=== PATIENT | female | born 1975 | race Caucasian/White ===

== ENCOUNTER 2017-01-17 23:39 | Emergency (ER) | payer MEDICARE ==
--- NOTE | ~2017-01-17 | CT2 ---
[facility] A Service [facility] RADIOLOGY TEXT RESULTS PATIENT: KRISTINA MONDRAGON LOCATION: [facility] : [birth year] UNIT #: [id number] AGE: [address]: Meghan Nails APRN SEX: F ORDER DR: [id number] [facility]. [place], [place] [address] [id number] E MR#: [id number] #: [id number] NAME: KRISTINA MONDRAGON. : 1975 SEX: F STUDY DATE/TIME: 01/18/2017 3:51 UNIT: [facility] ROOM: STUDY DESCRIPTION: CT Abd and Pelv W Cont Attending Physician: Meghan Nails A.P.R.N. Ordering Physician: Meghan Nails A.P.R.N. Primary Care Physician: Katelynn Machado M.D. MEDICAL IMAGING REPORT This report is preliminary unless electronic signature is present EXAM CT abdomen and pelvis with contrast. INDICATION Right-sided abdominal pain tonight. PROCEDURE Contrast-enhanced CT of the abdomen and pelvis. This CT exam was performed with one or more of the following radiation dose reduction techniques: automatic exposure control, adjustment of mA and/or kV according to patient size, and iterative reconstruction. COMPARISON None FINDINGS ABDOMEN WITH CONTRAST: Included lung bases are clear. Hepatomegaly with significant steatosis. The liver measures 24.3 cm. The spleen, kidneys, adrenal glands, pancreas unremarkable. Previous cholecystectomy. The bowel loops are nondilated. Appendix is normal. Moderate colonic stool. PELVIS WITH CONTRAST: No pelvic mass or fluid. No aggressive appearing bone lesion. IMPRESSION 1. No acute findings in the abdomen or pelvis. 2. Hepatomegaly with significant steatosis. [facility] A Service [facility] RADIOLOGY TEXT RESULTS PATIENT: KRISTINA MONDRAGON LOCATION: [facility] : 71 UNIT #: [id number] AGE: [address]: Meghan Nails APRN SEX: F ORDER DR: Dictated by... Damon Fernandes M.D. THIS IS AN ELECTRONICALLY VERIFIED REPORT Damon Fernandes M.D. at 01/21/2017 7:21 AM MARIA DEL CARMEN/chante TD: 01/18/2017 09:42 JOB #: [id number] MEDICAL IMAGING REPORT Page 1 of 1 COPY
[~2017-01-17 23:39] MED LIST: AMRIX15 MG PO; BACTRIM DS TABL1 TAB PO; LISINOPRIL PO; LISINOPRIL5 MG PO; MOTRIN600 M1 PO; NORCO 5/325 TAB1 TAB PO; OMEPRAZOLE40 MG PO; UNIVASC7.5 MG PO; VITAMIN D2 PO; ZOLOFT50 MG PO
[2017-01-18 02:14] LABS: URINE SOURCE CLEAN CATCH
[2017-01-18 02:28] LABS: BASOPHIL# 0.1 X10e3 (0-0.3); BASOPHIL% 0.7 % (0-2.5); EOSINOPHIL# 0.1 X10e3 (0-0.7); EOSINOPHIL% 0.9 % (0.0-7.0); HEMATOCRIT 37.9 % (35.0-45.0); HEMOGLOBIN 12.4 gm/dL (12.0-16.0); LYMPHOCYTE# 2.7 X10e3 (1.0-3.5); MEAN CELL VOLUME 76.7 FL (83-96); MEAN CORPUSCULAR HGB CONC 32.6 g/dL (30-36); MEAN PLATELET VOLUME 7.1 FL (6.5-11.5); MONOCYTE# 0.7 X10e3 (0-1.0); MONOCYTE% 6.6 % (3.0-12.0); NEUTROPHIL# 6.5 X10e3 (1.5-7.1); NEUTROPHIL% 64.8 % (40-75); PLATELET COUNT 274 X10e3 (140-420); RED BLOOD COUNT 4.95 X10e (3.90-5.30); RED CELL DISTRIBUTION WIDTH 14.2 % (11.0-15.5); WHITE BLOOD COUNT 10.1 X10e3 (4.0-10.5)
[2017-01-18 02:30] LABS: URINE APPEARANCE CLEAR; URINE BILIRUBIN NEG (NEG); URINE BLOOD NEG (NEG); URINE COLOR YELLOW; URINE GLUCOSE NEG (NEG); URINE KETONE NEG (NEG); URINE LEUKOCYTE ESTERASE NEG (NEG); URINE NITRATE NEG (NEG); URINE PROTEIN NEG (NEG); URINE SPECIFIC GRAVITY 1.029 (1.003-1.035)
[2017-01-18 02:30] LABS: DIFF IND NO
[2017-01-18 02:33] LABS: CULTURE INDICATED? NO
[2017-01-18 03:00] LABS: ALBUMIN SERUM 4.4 g/dL (3.5-5.0); BILIRUBIN,TOTAL 0.7 mg/dL (0.2-2.0); BUN/CREATININE RATIO 11.11; CREATININE SERUM 0.9 mg/dL (0.6-1.4); GLOM FILT RATE Estimated 78.4 mL/min (>60); POTASSIUM 3.6 mmol/L (3.5-5.1); PROTEIN TOTAL SERUM 7.2 g/dL (6.0-8.3)
[2017-01-21 08:19] LABS: CHLAMYDIA TRACH Not Detected (Not Detected); N GONOR Not Detected (Not Detected)
[2017-02-13] MEDS ORDERED: SERTRALINE HCL100 M1 PO (14:54)
[2017-02-13] MEDS ORDERED: LISINOPRIL5 MG PO (14:54)
[2017-02-13] MEDS ORDERED: DOCUSATE SODIU100 MG PO (14:55)
== END 2017-01-18 05:35 | disposition home or self-care (01) ==
LOC: CED 23:39
PROVIDERS: Nurse Practitioner
DX: R10.9 Unspecified abdominal pain (principal); I10 Essential (primary) hypertension; Z88.0 Allergy status to penicillin
CPT/HCPCS: 36415; 74177; 80053; 81003; 82150; 83690; 84703; 85025; 87491; 87591; 87808; 87905; 88305; 96360; 99284; Q9967

== ENCOUNTER → 2017-02-25 | Day surgery (SDC) | payer MEDICARE ==
[~2017-02-25] MED LIST changes: +DOCUSATE SODIU100 MG PO; +SERTRALINE HCL100 M1 PO
--- NOTE | ~2017-02-25 | OR ---
Unit #: [id number] #: [id number] Patient: KRISTINA MONDRAGON [id number] [address] [place], [place] [address] [id number] O MR#: [id number] NAME: KRISTINA MONDRAGON. ROOM: Date of Procedure: 02/25/2017 Admission Date: 02/25/2017 Surgeon: Slim Loo M.D. : 1975 Attending Physician: Slim Loo M.D. Referring Physician: Slim Loo M.D. Primary Care Physician: Katelynn Machado M.D. OPERATIVE REPORT PREOPERATIVE DIAGNOSES 1. Reflux symptoms resistant to medications. 2. 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 POSTOPERATIVE DIAGNOSES 1. Reflux symptoms resistant to medications. 2. 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 PROCEDURES PERFORMED 1. Esophagogastroduodenoscopy. 2. Biopsy of antrum for Helicobacter pylori testing. 3. Colonoscopy to terminal ileum. 4. Biopsy of abnormal mucosa at 20 cm. ANESTHESIA Monitored anesthesia care. FINDINGS The patient was found on upper endoscopy to have mild gastritis, mild distal esophagitis, and small hiatal hernia. On colonoscopy, the patient was found to have a small amount of abnormal mucosa possibly the site where the large colonic lipoma extruded that was biopsied. SPECIMENS Sent to pathology. COMPLICATIONS None apparent. CONDITION The patient tolerated the procedure well. INDICATIONS FOR PROCEDURE The patient is a 41-year-old white female, who several weeks ago developed right-sided abdominal pain. She had a bowel movement looked in the toilet and saw a large piece of tissue present. She retrieved this and came to the emergency room for evaluation. She had some rectal bleeding at this time. She had a CT scan at that time that was normal. The tissue was sent to pathology and the pathology report returned as a benign lipoma with ischemic overlying colonic mucosa. It was felt that she had possibly had a lipoma that had increased in size and had eroded through the mucosal lining of the colon and passed per rectum. She presents at this time for Unit #: [id number] #: [id number] Patient: KRISTINA MONDRAGON evaluation by upper and lower endoscopy. DESCRIPTION OF PROCEDURE After obtaining informed consent, the patient was brought to the endoscopy suite and after adequate monitored anesthesia care, had the endoscope placed through the mouth into the upper esophagus under direct vision. It was advanced to the second portion of the duodenum without difficulty with the lumen always in view. The duodenum was normal as was the duodenal bulb. The pylorus opened normally. There was some mild distal gastritis present and a biopsy was obtained for Helicobacter pylori testing. On retroflexion back to the GE junction, there was some mild to moderate gastritis in the proximal stomach and a small hiatal hernia was seen. No other abnormalities were found in the proximal third, middle third, or incisura. On pulling back above the GE junction, there was some mild distal esophagitis. There was no stenosis, stricture, or neoplasm seen. The remaining portion of the esophagus was within normal limits. Laryngeal structures were grossly normal as viewed from above. At this point in time, the colonoscope was placed through the anus and slowly advanced to the level of the cecum without difficulty with the lumen always in view. The cecum was within normal limits as was the ileocecal valve. We were able to pass through the ileocecal valve into the terminal ileum. The terminal ileum was normal as well. The ascending colon was normal as was the hepatic flexure, transverse colon, splenic flexure, and descending colon. The sigmoid colon was normal until at 20 cm, there was a small 2 to 3 cm area of raised mucosa. It did not appear to be a neoplasm. There was no ulceration seen. It was felt this could possibly have been the area where the lipoma had extruded through the lining of the colon. A biopsy was obtained. There was good hemostasis. The remaining portion of the rectosigmoid and rectum were all within normal limits. On retroflexing back to the anorectal junction, there was no obvious abnormality seen. The scope was removed without difficulty. The patient tolerated the procedure well and went from the endoscopy suite to the recovery area in stable condition. RECOMMENDATIONS Gastroesophageal reflux sheet given. High-fiber diet, lots of liquids, tucks or wipes p.r.n. Call Saturday for pathology report and to discuss findings. Dictated by... Elke Fontanez/kelechi TD: 02/25/2017 16:22 JOB #: [id number] CC: [facility] Unit #: [id number] #: [id number] Patient: KRISTINA MONDRAGON OPERATIVE REPORT Page 1 of 1 X Slim Loo MD PROCEDURE OPERATIVE NOTE
== END | disposition home or self-care (01) ==
LOC: COPS 10:28
DX: K52.9 Noninfective gastroenteritis and colitis, unspecified (principal); K63.89 Other specified diseases of intestine; K29.70 Gastritis, unspecified, without bleeding; K21.0 Gastro-esophageal reflux disease with esophagitis; K44.9 Diaphragmatic hernia without obstruction or gangrene; I11.0 Hypertensive heart disease with heart failure; I50.9 Heart failure, unspecified; J30.9 Allergic rhinitis, unspecified; F31.9 Bipolar disorder, unspecified; F32.9 Major depressive disorder, single episode, unspecified; F41.1 Generalized anxiety disorder; Z87.440 Personal history of urinary (tract) infections; Z88.0 Allergy status to penicillin; Z98.890 Other specified postprocedural states
CPT/HCPCS: 84703; 87077; 88305

== ENCOUNTER 2017-03-12 17:16 | Emergency (ER) | payer OTHER, MEDICARE ==
[~2017-03-12] VITALS: Ht 172.7 cm; Wt 99.8 kg
--- NOTE | ~2017-03-12 | CT2 ---
[facility] A Service [facility] RADIOLOGY TEXT RESULTS PATIENT: KRISTINA MONDRAGON LOCATION: [facility] : 71 UNIT #: [id number] AGE: [address]: Marcial Levine MD SEX: F ORDER DR: [id number] [facility] [address] [place], [place] [address] [id number] E MR#: [id number] #: [id number] NAME: KRISTINA MONDRAGON : 1975 SEX: F STUDY DATE/TIME: 03/12/2017 22:00 UNIT: [facility] ROOM: STUDY DESCRIPTION: CT Abd and Pelv W Cont Attending Physician: Damon Levine M.D. Ordering Physician: Ed Doctor [id number] [facility] Primary Care Physician: Katelynn Machado M.D. MEDICAL IMAGING REPORT This report is preliminary unless electronic signature is present EXAM CT scan of the abdomen and pelvis with contrast 03/12/2017 HISTORY Right flank pain for [address] was performed through the abdomen and pelvis following oral and intravenous contrast administration. This CT examination was performed with one or more of the following radiation dose reduction techniques: automatic exposure control, adjustment of mA and/or kV according to patient size, and iterative reconstruction. FINDINGS ABDOMEN: There is diffuse fatty infiltration of the liver. The spleen, pancreas, gallbladder and biliary tree, adrenal glands and kidneys are normal. PELVIS: The gut, mesenteric and alexander structures are normal. The appendix is normal. There is no free fluid in the abdomen or pelvis. The lung bases are normal. IMPRESSION 1. Normal appendix. 2. Fatty infiltration of the liver. Dictated by... Jason Gomez M.D. THIS IS AN ELECTRONICALLY VERIFIED REPORT Jason Gomez M.D. at 03/13/2017 2:20 PM [facility] A Service [facility] RADIOLOGY TEXT RESULTS PATIENT: KRISTINA MONDRAGON LOCATION: [facility] : 71 UNIT #: [id number] AGE: [address]: Marcial Levine MD SEX: F ORDER DR: GINA/heather TD: 03/13/2017 09:00 JOB #: [id number] MEDICAL IMAGING REPORT Page 1 of 1 COPY
[2017-03-12 18:56] LABS: BASOPHIL% 0.6 % (0-2.5); EOSINOPHIL# 0.1 X10e3 (0-0.7); EOSINOPHIL% 1.3 % (0.0-7.0); HEMATOCRIT 37.3 % (35.0-45.0); HEMOGLOBIN 12.6 gm/dL (12.0-16.0); LYMPHOCYTE% 27.5 % (17.0-45.0); MEAN CORPUSCULAR HEMOGLOBIN 25.7 PG (28-34); MEAN CORPUSCULAR HGB CONC 33.8 g/dL (30-36); MEAN PLATELET VOLUME 6.9 FL (6.5-11.5); MONOCYTE# 0.5 X10e3 (0-1.0); MONOCYTE% 6.7 % (3.0-12.0); NEUTROPHIL# 4.7 X10e3 (1.5-7.1); NEUTROPHIL% 63.9 % (40-75); PLATELET COUNT 247 X10e3 (140-420); RED BLOOD COUNT 4.91 X10e (3.90-5.30); RED CELL DISTRIBUTION WIDTH 14.6 % (11.0-15.5); WHITE BLOOD COUNT 7.3 X10e3 (4.0-10.5)
[2017-03-12 18:57] LABS: DIFF IND NO
[2017-03-12 19:20] LABS: ALBUMIN SERUM 4.4 g/dL (3.5-5.0); BILIRUBIN, DIRECT 0.1 mg/dL (0.0-0.2); BILIRUBIN,INDIRECT 0.7 mg/dL (0.0-0.9); BILIRUBIN,TOTAL 0.8 mg/dL (0.2-2.0); BUN/CREATININE RATIO 8.88; CALCIUM SERUM 8.9 mg/dL (8.4-10.2); CREATININE SERUM 0.9 mg/dL (0.6-1.4); GLOM FILT RATE Estimated 78.4 mL/min (>60); POTASSIUM 3.6 mmol/L (3.5-5.1)
[2017-03-12 21:16] LABS: URINE SOURCE CLEAN CATCH
[2017-03-12 21:22] LABS: URINE APPEARANCE CLEAR; URINE BILIRUBIN NEG (NEG); URINE BLOOD NEG (NEG); URINE COLOR YELLOW; URINE GLUCOSE NEG (NEG); URINE KETONE NEG (NEG); URINE LEUKOCYTE ESTERASE TRACE (NEG); URINE NITRATE NEG (NEG); URINE PH 6.5 (5-8); URINE PROTEIN NEG (NEG); URINE SPECIFIC GRAVITY 1.008 (1.003-1.035); URINE UROBILINOGEN 0.2 MG/DL (NEG)
[2017-03-12 21:24] LABS: U HYALINE CASTS AUWI 0-2 /[LPF]; URBCS1 AUWI 0-2 /[HPF] (0-2); URINE BACTERIA AUWI NEG (NEGATIVE); URINE SQUAMOUS EPITHELIAL CELL OCC /[HPF]
[2017-03-12 21:25] LABS: CULTURE INDICATED? NO
== END 2017-03-12 23:30 | disposition home or self-care (01) ==
LOC: CED 17:16
PROVIDERS: Emergency Medicine
DX: R10.31 Right lower quadrant pain (principal); I10 Essential (primary) hypertension; F32.9 Major depressive disorder, single episode, unspecified; Z98.890 Other specified postprocedural states; Z79.899 Other long term (current) drug therapy; Z88.0 Allergy status to penicillin
CPT/HCPCS: 36415; 74177; 80048; 80076; 81003; 84703; 85025; 99284; Q9967